=== PATIENT | male | born 1970 | race African-American/Black ===

== ENCOUNTER 2016-11-19 21:04 | Emergency (ER) | payer OTHER ==
[~2016-11-19] VITALS: Ht 180.3 cm; Wt 75.4 kg
[2016-11-19 22:18] LABS: HEMATOCRIT 49.6 % (39.0-50.0); HEMOGLOBIN 16.8 g/dl (14.0-18.0); IMMATURE GRANULOCYTES 0.4 % (0.0-1.0); MEAN CELL VOLUME 88.4 fL CALC (80.0-100.0); MEAN CORPUSCULAR HGB 29.9 pG CALC (26.0-32.0); MEAN CORPUSCULAR HGB CONC 33.9 g/L CALC (32.0-36.0); NEUT# 4.4 thou/uL (1.82-7.42); RED BLOOD COUNT 5.61 mill/uL (4.70-6.10); RED CELL DISTRI WIDTH 13.2 % (11.5-15.5)
[2016-11-19 22:26] LABS: ALKALINE PHOSPHATASE 76 u/l (38-126); ANION GAP 19 (6-22 (CALC)); BILIRUBIN, TOTAL 0.4 mg/dL (0.0-1.4); BUN 16 mg/dL (9-20); BUN/CREATININE RATIO 13 (12-20 (CALC)); CARBON DIOXIDE 26 mmol/l (22-30); CHLORIDE 104 mmol/l (95-108); CREATININE 1.3 mg/dL (0.7-1.3); GFR 59 ML/MIN (>=60 (CALC)); GFR FOR AFR.AMER. > 60 ML/MIN (>=60 (CALC)); GLUCOSE 83 mg/dL (75-110); POTASSIUM 4.4 mmol/l (3.5-5.1); SGOT/AST 29 u/l (17-59); SGPT/ALT 31 u/l (21-72); SODIUM 145 mmol/l (137-146); TOTAL PROTEIN 8.5 g/dL (6.3-8.2)
[2016-11-19] MEDS ORDERED: ALBUTERO2 XX (23:08)
[2016-11-19 23:21] VITALS: BP 119/76
== END 2016-11-19 23:22 | disposition home or self-care (01) | DRG 203 ==
LOC: ED 21:04
PROVIDERS: Emergency Medicine
DX: J45.909 Unspecified asthma, uncomplicated (principal); F17.210 Nicotine dependence, cigarettes, uncomplicated; R05 Cough

== ENCOUNTER 2016-11-29 17:19 | Emergency (ER) | payer OTHER ==
[~2016-11-29] VITALS: Ht 180.3 cm; Wt 72.8 kg
[~2016-11-29 17:19] MED LIST: ALBUTERO2 XX
[2016-11-29 17:20] VITALS: BP 167/94
[2016-11-29] MEDS ORDERED: PREDNISONE50 MG PO (17:32)
[2016-11-29] MEDS ORDERED: ZITHROMAX250 MG PO (17:32)
[2016-11-29] MEDS ORDERED: TESSALON PER100 MG PO (17:32)
== END 2016-11-29 17:58 | disposition home or self-care (01) | DRG 203 ==
LOC: ED 17:19
DX: J20.9 Acute bronchitis, unspecified (principal); F17.200 Nicotine dependence, unspecified, uncomplicated; R06.02 Shortness of breath; R05 Cough; R06.2 Wheezing